=== PATIENT | male | born 1950 | race Caucasian/White ===

== ENCOUNTER 2018-02-20 05:00 | Day surgery (SDC) | payer OTHER ==
[~2018-02-20 05:00] MED LIST: RAMIPRIL2.5 MG; SERTRALINE HCL25 MG; SINEMET 10-1001 EACH; STOOL SOFTENER50 MG; ZOCOR20 MG
[2018-02-20] MEDS ORDERED: PERCOCET 5-3251 EACH PO (10:51)
[2018-02-20] MEDS ORDERED: TAMS0.4C PO (10:52)
[2018-02-20] MEDS ORDERED: RECTICARE30 GM TOP (10:52)
== END 2018-02-20 15:05 | disposition home or self-care (01) ==
LOC: CIR.AMB 05:00
DX: K64.3 Fourth degree hemorrhoids (principal); K64.5 Perianal venous thrombosis